=== PATIENT | male | born 1970 | race African-American/Black ===

== ENCOUNTER 2018-09-08 19:11 | Emergency (ER) | payer SELFPAY ==
[~2018-09-08] VITALS: Ht 182.9 cm; Wt 79.4 kg
[2018-09-08 19:33] VITALS: BP 112/52
[2018-09-08] MEDS ORDERED: Dicyclomine HCl 10mg/5ml oral soln ORAL ONE (19:45)
[2018-09-08] MEDS ORDERED: Mylanta II UD 30ml ORAL ONE (19:45)
[2018-09-08] MEDS ORDERED: Lidocaine 2% Visc 15ml soln ORAL ONE (19:45)
--- NOTE | 2018-09-08 19:53 | Emergency Room Report ---
History of Present Illness General Chief Complaint: Chest Pain Source: Patient Present Illness HPI 48-year-old male patient presents the ER complaining of chest pain. Reports chest pain is substernal, began about 1 1/2 hours ago. States it feels like "I swallowed a bug". States that he was eating some crackers and had a beer prior to the onset of symptoms. Reports that pain symptoms now in his abdomen, reports generalized abdominal pain. Reports feeling nausea, denies vomiting. Denies history of heart attack or stroke. Denies history of heart disease. Denies recent travel. Denies neck pain. Denies calf pain. Reports history of marijuana use, denies other drug use. Allergies: Coded Allergies: No Known Allergies (Unverified , 09/08/18) Patient History Past Medical History: see triage record Reviewed Nursing Documentation: PMH: Agreed; PSxH: Agreed Nursing Documentation-PMH Past Medical History: No History, Except For Hx Cardiac Problems: No - right shoulder surgery 04/2018 Review of Systems All Other Systems: negative except mentioned in HPI Physical Exam Vital Signs Date Time Temp Pulse Resp B/P (MAP) Pulse Ox O2 Delivery O2 Flow Rate FiO2 09/08/18 19:18 98.4 129 16 112/52 97 Room Air 09/08/18 19:33 99 Sp02 EP Interpretation: reviewed, normal General Appearance: well appearing, no apparent distress, alert, GCS 15, non- toxic Head: normocephalic, atraumatic Eyes: bilateral eye normal inspection, bilateral eye PERRL ENT: hearing grossly normal, normal pharynx, no angioedema, normal voice, uvula midline, moist mucus membranes Neck: full range of motion Respiratory: lungs clear, normal breath sounds, no rhonchi, no respiratory distress, no accessory muscle use, no wheezing, speaking full sentences Cardiovascular #1: regular rate, rhythm, no edema Cardiovascular #2: 2+ radial (R), 2+ radial (L) Gastrointestinal: non tender, soft, no mass, non-distended, no guarding, no rebound Genitourinary: no CVA tenderness Musculoskeletal: back normal, digits/nails normal, gait/station normal, normal range of motion, non-tender, no calf tenderness, Too's Sign negative Neurologic: alert, oriented x3, responsive, motor strength/tone normal, sensory intact Skin: no rash Medical Decision Making PA Attestation Dr. Grady is my supervising Physician whom patient management has been discussed with. Diagnostic Impression: Primary Impression: Nonspecific chest pain Additional Impression: Heart burn ER Course Pt. presents to the ED c/o chest pain. Ddx considered but are not limited to CT, arrhythmia, DVT, PE, penumonia, bronchitis, costochondritis, anxiety, AAA, PE, pancreatitis, GERD. No calf swelling, negative Too's sign, low suspicion for DVT pr PE per Well's criteria. negative rovsing, negative obturator, does not require CT abdomen at this time. Low suspicion for cardiac cause of pain. Will order labs to rule out. Vital signs: are WNL, pt. is afebrile, patient tachycardic. Ordered X-ray, labs, troponin, EKG and pain medication. ER COURSE Patient with aspirin and GI cocktail. Lungs clear to auscultation, no wheezes rhonchi rales. Labs shows no elevation in WBC or LFTs Blood pressure on upper and lower extremities equal, low suspicion for AAA. Troponin negative at 0.35, will order repeat troponin following IV fluids. CXR needed for acute disease. EKG shows tachycardia, no ST elevations or atrial fibrillation Urine drug screen positive for THC, remainder negative, patient admitted THC use , advised against smoking. Troponin shows decrease from 0.035 2.025. Lipase within normal limits. D-dimer within normal limits, low suspicion for PE. Patient no longer tachycardia. patient denies shortness of breath, EKG and chest x-ray unremarkable, troponin negative, low suspicion for CT or CHF. Patient resting comfortably in the ER, states pain symptoms have improved while here. Reports feeling better. Patient notes that he also remembered eating some spicy cheap liquor store food" prior to onset of symptoms earlier today. Advised against eating spicy foods, fatty foods, drinking alcohol. ER precautions given. Followup with GI specialist. DISCHARGE: At this time pt. is stable for d/c to home. Patient is resting comfortably, in no acute distress, nontoxic appearing, talking without difficulty. Will provide printed patient care instructions, and any necessary prescriptions. Patient instructed to follow with primary care provider in 1-3 days. Followup with primary care provider for further pain medication rx. Followup with swatch maker and eye doctor. Care plan and follow up instructions have been discussed with the patient prior to discharge. Take medications as directed. Patient questions asked and answered. Patient reports understanding and agreement to treatment plan. ER precautions given, patient instructed to return to ER immediately for any new or worsening of symptoms. - Please note that this Emergency Department Report was dictated using Inbilinsonar technician technology software, occasionally this can lead to erroneous entry secondary to interpretation by the dictation equipment. Labs Test 09/08/18 19:45 09/08/18 21:20 09/08/18 21:30 White Blood Count 8.7 K/UL (4.8-10.8) Red Blood Count 4.90 M/UL (4.70-6.10) Hemoglobin 15.2 G/DL (14.2-18.0) Hematocrit 43.2 % (42.0-52.0) Mean Corpuscular Volume 88 FL (80-99) Mean Corpuscular Hemoglobin 31.0 PG (27.0-31.0) Mean Corpuscular Hemoglobin Concent 35.2 G/DL (32.0-36.0) Red Cell Distribution Width 10.4 % (11.6-14.8) Platelet Count 172 K/UL (150-450) Mean Platelet Volume 8.4 FL (6.5-10.1) Neutrophils (%) (Auto) 80.9 % (45.0-75.0) Lymphocytes (%) (Auto) 12.0 % (20.0-45.0) Monocytes (%) (Auto) 6.2 % (1.0-10.0) Eosinophils (%) (Auto) 0.0 % (0.0-3.0) Basophils (%) (Auto) 0.8 % (0.0-2.0) D-Dimer 0.20 mg/L FEU (0.00-0.49) Sodium Level 139 MMOL/L (136-145) Potassium Level 3.6 MMOL/L (3.5-5.1) Chloride Level 102 MMOL/L (98-107) Carbon Dioxide Level 25 MMOL/L (21-32) Anion Gap 12 mmol/L (5-15) Blood Urea Nitrogen 15 mg/dL (7-18) Creatinine 1.4 MG/DL (0.55-1.30) Estimat Glomerular Filtration Rate > 60 mL/min (>60) Glucose Level 107 MG/DL (74-106) Calcium Level 9.1 MG/DL (8.5-10.1) Total Bilirubin 0.4 MG/DL (0.2-1.0) Aspartate Amino Transf (AST/SGOT) 21 U/L (15-37) Alanine Aminotransferase (ALT/SGPT) 22 U/L (12-78) Alkaline Phosphatase 79 U/L (46-116) Total Creatine Kinase 157 U/L (26-308) Creatine Kinase MB 1.1 NG/ML (0.0-3.6) Creatine Kinase MB Relative Index 0.7 Pro-B-Type Natriuretic Peptide 32 pg/mL (0-125) Total Protein 7.8 G/DL (6.4-8.2) Albumin 4.0 G/DL (3.4-5.0) Globulin 3.8 g/dL Albumin/Globulin Ratio 1.1 (1.0-2.7) Lipase 80 U/L (73-393) Urine Color Pale yellow Urine Appearance Clear Urine pH 6 (4.5-8.0) Urine Specific [place] 1.010 (1.005-1.035) Urine Protein Negative (NEGATIVE) Urine Glucose (UA) Negative (NEGATIVE) Urine Ketones Negative (NEGATIVE) Urine Blood 2+ (NEGATIVE) Urine Nitrite Negative (NEGATIVE) Urine Bilirubin Negative (NEGATIVE) Urine Urobilinogen Normal MG/DL (0.0-1.0) Urine Leukocyte Esterase Negative (NEGATIVE) Urine RBC 0-2 /HPF (0 - 0) Urine WBC 0 /HPF (0 - 0) Urine Squamous Epithelial Cells None /LPF (NONE/OCC) Urine Bacteria None /HPF (NONE) Urine Opiates Screen Negative (NEGATIVE) Urine Barbiturates Screen Negative (NEGATIVE) Phencyclidine (PCP) Screen Negative (NEGATIVE) Urine Amphetamines Screen Negative (NEGATIVE) Urine Benzodiazepines Screen Negative (NEGATIVE) Urine Cocaine Screen Negative (NEGATIVE) Urine Marijuana (THC) Screen Positive (NEGATIVE) Troponin I 0.025 ng/mL (0.000-0.056) EKG Diagnostic Results Rate: tachycardiac Rhythm: NSR ST Segments: no acute changes ASA given to the pt in ED: Yes PA Scribe Text Yared Ferguson PA-C Rhythm Strip Diag. Results EP Interpretation: yes Rate: 118 Rhythm: NSR, no PVC's, no ectopy PA Scribe Patrick Ferguson PA-C Chest X-Ray Diagnostic Results Chest X-Ray Diagnostic Results : Chest X-Ray Ordered: Yes # of Views/Limited/Complete: 1 View Indication: Chest Pain EP Interpretation: Yes PA Xray: Interpretation reviewed, by supervising MD, and agrees with findings. Interpretation: no consolidation, no effusion, no pneumothorax, no acute cardiopulmonary disease Impression: No acute disease YOLANDA Scribbrian Text Yared Ferguson PA-C Last Vital Signs Date Time Temp Pulse Resp B/P (MAP) Pulse Ox O2 Delivery O2 Flow Rate FiO2 09/08/18 19:33 129 16 Room Air 99 09/08/18 19:33 98.4 112/52 97 Status: improved Disposition: HOME, SELF-CARE Condition: Stable Scripts Acetaminophen* (TYLENOL EXTRA STRENGTH*) 500 Mg Tablet 500 MG ORAL Q8H PRN for Prn Headache/Temp > 101, #30 TAB 0 Refills Prov: Aki Ferguson 09/08/18 Famotidine (PEPCID AC) 20 Mg Tablet 20 MG PO DAILY, #30 TAB Prov: Aki Ferguson 09/08/18 Patient Instructions: Nonspecific Chest Pain, Heartburn Additional Instructions: Followup with primary care provider in 3 -5 days for further treatment and referral to GI. Discussed referral to cardiology for further evaluation and treatment, discussed need for stress testing. Discuss testing for H.pylori. Keep food journal of foods eaten and times of symptom onset. Take medications as directed. Patient questions asked and answered. Drink fluids as tolerated to prevent dehydration. Take Tylenol OTC for pain, [place] OK. Avoid spicy foods, avoid dairy, avoid alcohol. Do not eat late night meals. Elevate head of bed when sleeping. ER precautions given, patient instructed to return to ER immediately for any new or worsening of symptoms including but not limited to chest pain, SOB, abdominal pain, blood in vomit. Aki Ferguson Sep 08, 2018 19:53
[2018-09-08 20:12] LABS: BASOPHILS % (AUTO) 0.8 % (0.0-2.0); HEMATOCRIT 43.2 % (42.0-52.0); HEMOGLOBIN 15.2 G/DL (14.2-18.0); MEAN CORPUSCULAR VOLUME 88 FL (80-99); MONOCYTES % (AUTO) 6.2 % (1.0-10.0); NEUTROPHILS % (AUTO) 80.9 % (45.0-75.0); PLATELET COUNT 172 K/UL (150-450); RED CELL DISTRIBUTION WIDTH 10.4 % (11.6-14.8); WHITE BLOOD COUNT 8.7 K/UL (4.8-10.8)
[2018-09-08 20:26] LABS: ANION GAP 12 mmol/L (5-15); BLOOD UREA NITROGEN 15 mg/dL (7-18); CALCIUM 9.1 MG/DL (8.5-10.1); CARBON DIOXIDE 25 MMOL/L (21-32); CHLORIDE 102 MMOL/L (98-107); CREATININE 1.4 MG/DL (0.55-1.30); POTASSIUM 3.6 MMOL/L (3.5-5.1); SODIUM 139 MMOL/L (136-145)
[2018-09-08 20:39] LABS: ALANINE AMINOTRANSFERASE 22 U/L (12-78); ALBUMIN/GLOBULIN RATIO 1.1 (1.0-2.7); ALKALINE PHOSPHATASE 79 U/L (46-116); ASPARTATE AMINO TRANSFERASE 21 U/L (15-37); BILIRUBIN,TOTAL 0.4 MG/DL (0.2-1.0); CKMB 1.1 NG/ML (0.0-3.6); CREATINE KINASE 157 U/L (26-308)
[2018-09-08] MEDS ORDERED: LORazepam Inj 2mg/ml 1ml IM ONE (21:00)
[2018-09-08 21:36] LABS: APPEARANCE,URINE CLEAR; BILIRUBIN, URINE NEGATIVE (NEGATIVE); COLOR,URINE PALE YELLOW; GLUCOSE, URINE (UA) NEGATIVE (NEGATIVE); KETONES,URINE NEGATIVE (NEGATIVE); LEUKOCYTE ESTERASE ,URINE NEGATIVE (NEGATIVE); NITRITE,URINE NEGATIVE (NEGATIVE); PH,URINE 6 (4.5-8.0); PROTEIN,URINE NEGATIVE (NEGATIVE); UROBILINOGEN,URINE NORMAL MG/DL (0.0-1.0)
[2018-09-08] MEDS ORDERED: PEPCID AC20 M2 PO (22:12)
[2018-09-08] MEDS ORDERED: TYLENOL EXTRA500 MG ORAL (22:12)
[2018-09-08 22:45] VITALS: BP 115/60
--- NOTE | 2018-09-09 09:40 | Diagnostic Imaging Report ---
Indication: Chest pain Technique: One view of the chest Comparison: none Findings: Lungs and pleural spaces are clear. Heart size is normal Impression: No acute process
--- NOTE | 2018-09-09 16:00 | Cardiology Report ---
APPROVED REPORT EKG Measurement Heart [id number] Sinus tachycardia Otherwise normal ECG
== END 2018-09-08 22:45 | disposition home or self-care (01) ==
LOC: EMR 20:00
DX: R07.9 Chest pain, unspecified (principal); R12 Heartburn
CPT/HCPCS: 36415; 71045; 80053; 80307; 81003; 82550; 82553; 83690; 83880; 84484; 85025; 85379; 93005; 96361; 96372; 96374; 99284; J2405